=== PATIENT | female | born 1995 | race Caucasian/White ===

== ENCOUNTER 2017-07-14 11:10 | Emergency (ER) | payer BC, SELFPAY ==
[2017-07-14 11:32] LABS: #Basophils 0.1 thou/uL (0.0-0.2); #Lymphocytes 1.9 thou/uL (1.20-3.40); #Monocytes 0.6 thou/uL (0.11-0.59); #Neutrophils 6.6 thou/uL (1.40-6.50); %Basophils 0.7 % (0.0-1.0); %Eosinophils 0.2 % (0.0-10.0); %Lymphocytes 20.3 % (21.0-51.0); %Monocytes 6.6 % (0.0-10.0); %Neutrophils 72.2 % (42.0-75.0); Hemoglobin 11.6 g/dL (12.0-16.0); Mean Corpuscular HGB CONC 33.2 g/dL (32.0-36.0); Mean Corpuscular Hemoglobin 29.3 pg (27.0-31.0); Mean Corpuscular Volume 88.3 fl (81.0-99.0); Platelet Count 249 thou/uL (130-400); RBC Distribution Width 11.2 % (11.5-14.5); Red Blood Cell (RBC) Count 3.95 mill/uL (4.20-5.40); White Blood Cell (WBC) Count 9.2 thou/uL (4.8-10.8)
[2017-07-14 11:52] LABS: ALT (SGPT) Less than 7 U/L (8-55); AST (SGOT) 9 U/L (5-34); Albumin 4.3 g/dL (3.5-5.0); Alkaline Phosphatase 44 U/L (40-150); Anion Gap 14 mmol/L (10-20); BUN (Urea Nitrogen) 16 mg/dL (7.0-18.7); Bilirubin, Total 0.4 mg/dL (0.2-1.2); Calc. Creatinine Clearance 0 mL/min (70-130); Calcium 9.6 mg/dL (7.8-10.44); Carbon Dioxide 25 mmol/L (22-29); Chloride 106 mmol/L (98-107); Estimated GFR-MDRD 79; Globulin 2.4 g/dL (2.4-3.5); Glucose 124 mg/dL (70-105); Potassium 4.6 mmol/L (3.5-5.1); Protein, Total 6.7 g/dL (6.0-8.3); Sodium 140 mmol/L (136-145)
[2017-07-14 12:31] LABS: BHCG - Serum Negative (NEGATIVE); Pregs Control Background? CLEAR/WHITE (CLR/WHITE); Pregs Control Bar Appear? YES (CONTROL BAR)
[2017-07-14 13:28] LABS: Bilirubin Negative (Negative); Blood, Urine Large (Negative); Clarity CLOUDY (Clear); Glucose, Urine (Dipstick) Negative (Negative); Leukocyte Small (Negative); Nitrite Negative (Negative); Protein, Urine (Dipstick) 100 mg/dL (Neg-Trace); Specific Gravity, Urine 1.025 (1.002-1.036); Urobilinogen 0.2 mg/dL (0.2-1.0)
[2017-07-14 13:33] LABS: Bacteria/HPF None Seen HPF (None Seen); Pathc Cast-AUWi Flag 1.59 (0-2.49); RBC/HPF GREATER THAN 50-TNTC HPF (0-3)
[2017-07-14 13:54] LABS: Hyaline Casts/LPF 0-3 HYALINE CAST LPF (0-3 Hyaline); Renal Epithelial 0-3 HPF (0-3); Transitional Epithelial 0-3 HPF (0-3)
--- NOTE | 2017-07-14 16:18 | CON ---
DATE OF CONSULTATION: 07/14/2017 CONSULTING PRACTITIONER: NINI West, nurse practitioner in the Emergency Department. CHIEF COMPLAINT: Vaginal bleeding. HISTORY OF PRESENT ILLNESS: This is a 21-year-old nulligravid female who presented to the emergency department with heavy vaginal bleeding. She reports that she had a Mirena IUD placed by Dr. Gaspar on Friday of last week. The placement was uncomplicated. She started her period two days later and describes it as pretty normal for her. However, yesterday she started having heavy vaginal bleeding requiring her to change pad 12 times. She was working as a nurse here on [employer] when she started feeling dizzy, almost passing out, and was sent down to the emergency department. She reports she is feeling better and that her bleeding has essentially stopped since getting IV fluids. She denies any pain or other concerns. REVIEW OF SYSTEMS: Negative for head, eyes, ears, nose, throat, cardiovascular , respiratory, GI, , neuro, psych, musculoskeletal, skin or constitutional symptoms other than mentioned above. PAST MEDICAL HISTORY: None. PAST SURGICAL HISTORY: None. MEDICATIONS: None. ALLERGIES: No known drug allergies. SOCIAL HISTORY: Negative for tobacco, alcohol, or drug abuse. INSPECTOR MATERIALS AND PROCESSES HISTORY: She is nulliparous and is not sexually active. This is her first attempt using control. Her last menstrual period was 07/12/2017. PHYSICAL EXAMINATION: VITAL SIGNS: Blood pressure 111/72, pulse 90, respiratory rate 18, temperature 98.1, pain 0. GENERAL: Awake, alert, in no acute distress. CHEST: Nonlabored breathing. ABDOMEN: Soft, nontender to palpation. PELVIC: Normal-appearing external female genitalia, BUS normal. Vaginal mucosa pink, moist, and well rugated. Cervix appears nulliparous without any gross lesions or abnormalities. IUD strings were visible at the os. There was no active bleeding or blood in the vault. EXTREMITIES: No edema. LABORATORY DATA: Hemoglobin 11.6, hematocrit 34.9, repeat was 10.0 and 30.7. ASSESSMENT AND PLAN: A 21-year-old with hypermenorrhea following IUD placement. She has an appointment today with a physician who placed it in an hour. Since she is no longer bleeding and is feeling well, I told her to keep that appointment. I suggested trying control pills in a continuous fashion for several months and leave the IUD in place. She may be discharged home to follow up with her physician. Thank you very much for this consultation. Please let me know if you have any other questions. MTDD
--- NOTE | 2017-08-22 15:38 | EKG ---
Test Reason : NEAR SYNCOPE Blood Pressure : / mmHG Vent. Rate : 077 BPM Atrial Rate : 077 BPM P-R Int : 144 ms QRS Dur : 062 ms QT Int : 342 ms P-R-T Axes : 032 070 027 degrees QTc Int : 387 ms Normal sinus rhythm Normal ECG Confirmed by TAM DANG MD ([id number]), primer expeditor and drier SAMIA HENSLEY ([id number]) on 08/22/2017 3:37:53 PM Referred By: SHILO Confirmed By:TAM DANG MD
== END 2017-07-14 14:36 | disposition home or self-care (01) ==
LOC: ERS 11:10
DX: N93.8 Other specified abnormal uterine and vaginal bleeding (principal)
CPT/HCPCS: 36415; 80053; 81003; 81015; 84703; 85025; 93005; 96360; 96361

== ENCOUNTER 2019-12-31 06:58 | Outpatient (CLI) | payer OTHER ==
--- NOTE | 2019-12-31 08:00 | ULT ---
GALLBLADDER ULTRASOUND: HISTORY: Right upper quadrant abdominal pain FINDINGS: The liver demonstrates homogeneous echotexture without focal mass or intrahepatic biliary ductal dila tation. No gallstones, gallbladder wall thickening or pericholecystic fluid are seen. The right kidney and visualized portions of the pancreas are normal. The common duct [id number] in diameter. No free fluid is seen in the Nicole's pouch. IMPRESSION: Normal exam.
== END 2019-12-31 06:59 | disposition home or self-care (01) ==
LOC: BICULT 06:58
PROVIDERS: ATTEND Advanced Practice Midwife
DX: R10.11 Right upper quadrant pain (principal)
CPT/HCPCS: 76705

== ENCOUNTER 2020-01-29 15:42 | Inpatient (IN) | payer OTHER ==
[~2020-01-29 15:42] MED LIST: Bupivacaine 0.25% 10 ML VIAL ONE; Bupivacaine/Epinephrine 0.25% 30 ML VIAL ONE
[2020-01-29 16:27] VITALS: BMI 27.8
[2020-01-29] MEDS ORDERED: Methylergonovine 0.2 MG/ML VIAL IM PRN (16:55)
[2020-01-29] MEDS ORDERED: Butorphanol Tartrate 1 MG/ML VIAL SLOW IVP PRN (16:55)
[2020-01-29] MEDS ORDERED: Carboprost 250 MCG/ML AMP IM PRN (16:55)
[2020-01-29] MEDS ORDERED: Acetaminophen 500 MG TAB PO PRN (16:55)
[2020-01-29] MEDS ORDERED: hydrALAZINE 20 MG/ML VIAL SLOW IVP PRN (16:55)
[2020-01-29] MEDS ORDERED: Ibuprofen 800 MG TAB PO PRN (16:55)
[2020-01-29] MEDS ORDERED: Promethazine HCl 25 MG/ML VIAL IM PRN ×2 (16:55→22:18)
[2020-01-29] MEDS ORDERED: Ondansetron PF 4 MG/2 ML Vial IVP PRN ×2 (16:55→22:18)
[2020-01-29] MEDS ORDERED: Lidocaine 1% (PF) 30 ML VIAL SC PRN (16:55)
[2020-01-29] MEDS ORDERED: NS w/ Oxytocin 10 units 500 ML IV SCH ×2 (17:00→22:30)
--- NOTE | 2020-01-29 17:05 | PDOC.FPROB ---
FMR OB H&P: HPI - History of Present Illness Chief Complaint: Contractions Indentification: 24yo @ 39.1 History of Present Illness: Pt stated that around 0200 she started to develop contractions that were mild but progressed through this morning. She spent much of the day laboring in her tub and then came in tonight as she felt like she was likely in active labor due to increasing pain and pressure. Denies any LOF. Denies any complications with this . Expresses desire for low intervention if possible. Does not want an epidural. Primary Care Physician: Dr. Marrero FMR OB H&P: Current - Care : 1 Para: 0 Gestational age: 39.1 Due date: 02/03 Dating Criteria: LMP and 1T sono - OB Labs Blood type: A RH: positive Antibody Screen: negative HIV: negative RPR: negative HepBsAg: negative Rubella: immune Urine drug screen: negative 1 hour gtt: 100 GBS: negative H&H: 11. FMR OB H&P: History - Past Medical History PMH: None - OB History OB History: - [employer] History [employer] History: Left complex ovarian cyst - Surgical History Sx History: None - Social History Social History: Denies alcohol, tobacco, drugs - Family History Family History: Non contributory FMR OB H&P: Medications - Current Home Medications: Medication Instructions Recorded Confirmed Type Pnv No.95/Ferrous Fum/Folic AC 1 each PO DAILY 01/29/20 01/29/20 History [ [place]] Allergies/Adverse Reactions: Allergies Allergy/AdvReac Type Severity Reaction Status Date / Time No Known Allergies Allergy Verified 01/29/20 16:29 FMR OB H&P: ROS - Review of Systems General: denies: fever/chills, fatigue Eyes: denies: vision changes, scotomas ENT: denies: nasal congestion, sore throat Cardiovascular: denies: chest pain, edema Respiratory: denies: cough, shortness of breath Gastrointestinal: denies: nausea, vomiting, diarrhea, constipation Genitourinary (Female): reports: contractions, vaginal pressure. denies: vaginal discharge, vaginal pain, vaginal bleeding Neurologic: denies: numbness, weakness, headache Integumentary: denies: itching, rash Endocrine: denies: polydipsia, polyuria Hematologic/Lymphatic: denies: prolonged or excessive bleeding FMR OB H&P: Vital Signs - Maternal Vital signs: Vital Signs - First Documented Temp Pulse Resp BP Pulse Ox 98.9 F 115 H 16 116/70 100 01/29/20 15:46 01/29/20 15:46 01/29/20 15:46 01/29/20 15:46 01/29/20 15:46 - Heart Tones Baseline: 145 Variability: moderate Acceleration: present Deceleration: absent Category: category 1 [place] contractions every: 3 FMR OB H&P: Physical Exam - Physical Exam General: NAD, awake, alert and oriented HEENT: EOMI, MMM, grossly normal vision, grossly normal hearing Heart: RRR, no edema General: no respiratory distress, good air movement Abdomen: soft, gravid Musculoskeletal: normal gait and station, FROM in all four extremities Neurological: no focal deficit Skin: no rash, good tugor Lymphatic: no unusual bruising or bleeding, no purpura Psychiatric: intact recent and remote memory, good judgement and insight, normal mood and affect - Pelvic Exam SVE: FMR OB H&P: A/P Disposition: Term IUP - Active Labor - - intact membranes Plan: Admit to L&D for expectant management of active labor. Discussion: Date/Time: 01/29/20 1705 This H&P was discussed with Dr. Paula who agrees with the above documentation and plan.
[2020-01-29 17:38] LABS: Hemoglobin 12.1 g/dL (12.0-16.0); Mean Corpuscular HGB CONC 34.4 g/dL (32.0-36.0); Mean Corpuscular Hemoglobin 28.5 pg (27.0-31.0); Mean Platelet Volume 9.2 fL (7.4-10.4); Platelet Count 162 thou/uL (130-400); RBC Distribution Width 12.4 % (11.5-14.5); Red Blood Cell (RBC) Count 4.26 mill/uL (4.20-5.40)
[2020-01-29 18:15] LABS: HBSAg Index 0.16 S/CO (0-0.99); Hep B Surf Ag Non-Reactive S/CO (NonReactive); Syphilis Antibody Nonreactive (Nonreactive); Syphilis Antibody Index 0.06 S/CO (<1.00 Non-Reactive)
[2020-01-29] MEDS ORDERED: Fentanyl 4 mcg/Bup 0.1% Cadd 100 ML ONE (21:31)
[2020-01-29] MEDS: Lactated Ringer's 1,000 ML IV SCH (21:44)
[2020-01-29] MEDS ORDERED: diphenhydrAMINE 50 MG/ML VIAL IVP PRN (22:18)
[2020-01-29] MEDS ORDERED: Lactated Ringer's 500 ML IV PRN (22:18)
[2020-01-29] MEDS ORDERED: EPHEDRINE 25 MG/5 ML SYRINGE SLOW IVP PRN (22:18)
[2020-01-29] MEDS ORDERED: Naloxone HCl 0.4 mg/ml Vial IVP PRN ×2 (22:18)
[2020-01-29] MEDS ORDERED: Acetaminophen 325 MG TAB PO PRN (22:18)
[2020-01-29] MEDS ORDERED: Fentanyl 4 mcg/Bupivacaine 0.1% Cassette 100 ML EPIDURAL SCH (22:30)
[2020-01-29] MEDS ORDERED: Communication Order-Pharmacy FS SCH (22:30)
[2020-01-29] MEDS ORDERED: Dextrose 5%-Lactated Ringers 1,000 ML IV SCH (23:15)
--- NOTE | 2020-01-30 00:52 | PDOC.OPDEL ---
OB Operative/Delivery Note - Findings A Sex: female - 1 min: 8 - 5 min: 9 - Additional Findings/Plan Compilations/Other Findings: Delivering Physician: Dr. Hector Diop Attending: Dr. Ky Paula Procedure: Spontaneous Vaginal Delivery Anesthesia: epidural QBL: 296 ml Pre-op Diagnosis: 1. Term intrauterine in labor Post-op Diagnosis: 1. Term intrauterine , delivered Indications: A 24y/o female presents in active labor. Delivery Note: This is 28yo F @ 39.2 wks who delivered a viable F infant at 0029 on 01/30/2020. Following an uneventful antepartum course, a vigorous female was delivered in the OA position. Anterior Shoulder and then remainder of the body delivered. No nuchal cord. The baby was handed to mother, dried and stimulated, and nares and mouth suctioned free of secretions. Cord clamped after delayed cord clamping and cut and cord blood collected. Placenta delivered intact with a 3 vessel cord noted. Fundal massage was performed and the fundus was firm. The cervix and vagina were inspected. There were bilateral periurethral superficial lacerations and a small pelvic floor laceration that became hemostatic independently and approximated well in natural position. immediately began skin to skin. Apgars were 8 / 9 at 1 & 5 minutes, respectively. Patient tolerated delivery well and went to after routine recovery/care. Addendum - Attending - Attending Attestation Date/Time: 01/30/20 4027 I personally evaluated the patient and discussed the management with Dr. Blake I agree with the History, Examination, Assessment and Plan documented above with any addition or exceptions noted below. I was present and supervising for 2nd and 3rd stages of labor.
[2020-01-30] MEDS: NS / Oxytocin 40 units/1000ml 1,000 ML IV PRN ×2 (01:00→02:02)
[2020-01-30] MEDS: Lactated Ringer's 1,000 ML IV SCH (02:45)
[2020-01-30] MEDS ORDERED: NS / Oxytocin 40 units/1000ml 1,000 ML IV SCH (03:18)
[2020-01-30] MEDS ORDERED: Benzocaine-Menthol 82.5 ML CAN TOP PRN (03:18)
[2020-01-30] MEDS ORDERED: hydrALAZINE 20 MG/ML VIAL SLOW IVP PRN (03:18)
[2020-01-30] MEDS ORDERED: Adacel (T-DAP) 0.5 ML SYRINGE IM ONE (03:18)
[2020-01-30] MEDS ORDERED: Lanolin Ointment 7 GM TUBE TOP PRN (03:18)
[2020-01-30] MEDS ORDERED: Milk Of Magnesia 30 ML UDCUP PO PRN (03:18)
[2020-01-30] MEDS ORDERED: Bisacodyl 10 MG SUPP PR PRN (03:18)
[2020-01-30] MEDS ORDERED: Ondansetron PF 4 MG/2 ML Vial IVP PRN (03:18)
[2020-01-30] MEDS: Ibuprofen 800 MG TAB PO SCH ×3 (03:43→22:07)
[2020-01-30 06:17] LABS: Hemoglobin 9.5 g/dL (12.0-16.0)
[2020-01-30] MEDS: Prenatal Vitamin 1 TAB PO SCH (08:49)
[2020-01-30] MEDS: Docusate Calcium (SURFAK) 240 MG CAP PO SCH ×2 (08:49→22:06)
[2020-01-30] MEDS: Ferrous Sulfate 325 MG TAB PO SCH ×2 (08:49→16:57)
[2020-01-31 04:36] VITALS: TEMP 98.6
[2020-01-31] MEDS: Ibuprofen 800 MG TAB PO SCH (06:03)
--- NOTE | 2020-01-31 08:14 | PDOC.PP ---
Post Progress Note Post Day #: 1 Subjective: doing well, nursing well but nipples are sore PO intake tolerated: yes Flatus: yes Ambulation: yes Weight Weight 194 lb - Physical Examination General: NAD Respiratory: non-labored breathing Abdominal: no distention Fundus firm & at: below umb Skin: no rash Psychiatric: A&Ox3, normal affect Result Diagrams: 01/30/20 06:04 Additional Labs: Post Labs Hep Bs Antigen Non-Reactive S/CO (NonReactive) 01/29/20 17:28 Blood Type A POSITIVE 01/29/20 19:35 - Assessment/Plan PPD 1 doing well, likely DC today after midnight delivery Sat - Sun, plan for DC today.
[2020-01-31] MEDS: Ferrous Sulfate 325 MG TAB PO SCH (08:46)
[2020-01-31] MEDS: Prenatal Vitamin 1 TAB PO SCH (08:46)
[2020-01-31] MEDS: Docusate Calcium (SURFAK) 240 MG CAP PO SCH (08:47)
[2020-01-31 09:56] VITALS: BP 106/53
== END 2020-01-31 12:55 | disposition home or self-care (01) | DRG 807 ==
LOC: L&D/OP 15:42 → L&D 17:00 → 3SW 01-30 03:53
PROVIDERS: ADMIT Obstetrics & Gynecology; ATTEND Obstetrics & Gynecology
PROC: 10E0XZZ Delivery of Products of Conception, External Approach (ICD-10-PCS; principal; 2020-01-30)
DX: O71.82 Other specified trauma to perineum and vulva (principal); Z37.0 Single live birth; Z20.828 Contact with and (suspected) exposure to other viral communicable diseases; Z3A.39 39 weeks gestation of pregnancy
CPT/HCPCS: 36415; 51702; 85014; 85018; 85027; 86780; 86850; 86900; 86901; 87340; 99285; J2405; J2590; S0020